=== PATIENT | female | born 1970 | race African-American/Black ===

== ENCOUNTER 2020-11-17 04:28 | Emergency (ER) | payer MEDICARE, MEDICAID ==
[~2020-11-17] VITALS: Ht 172.7 cm; Wt 81.6 kg
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
[2020-11-17] MEDS ORDERED: Morphine Sulfate 4mg/ml Inj (IV USE ONLY) IVP ONE (04:45)
[2020-11-17] MEDS ORDERED: Omnipaque-300 100ml vial INJ ONE (04:45)
[2020-11-17] MEDS ORDERED: Acetaminophen 500mg (ES) tab ORAL ONE (05:00)
[2020-11-17] MEDS ORDERED: Methocarbamol 750mg tab ORAL ONE (05:00)
--- NOTE | 2020-11-17 05:10 | NUR ---
ED Nurse Note: Blood sent for workup
[2020-11-17 05:15] LABS: BASOPHILS % (AUTO) 0.4 % (0.0-2.0); EOSINOPHILS % (AUTO) 0.1 % (0.0-3.0); HEMOGLOBIN 13.4 G/DL (12.0-16.0); LYMPHOCYTES % (AUTO) 13.2 % (20.0-45.0); MEAN CORPUSCULAR VOLUME 79 FL (80-99); MONOCYTES % (AUTO) 3.8 % (1.0-10.0); NEUTROPHILS % (AUTO) 82.6 % (45.0-75.0); PLATELET COUNT 305 K/UL (150-450); RED BLOOD COUNT 4.94 M/UL (4.20-5.40); RED CELL DISTRIBUTION WIDTH 13.6 % (11.6-14.8); WHITE BLOOD COUNT 15.1 K/UL (4.8-10.8)
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
[2020-11-17 05:23] LABS: ANION GAP 9 mmol/L (5-15); BLOOD UREA NITROGEN 14 mg/dL (7-18); CALCIUM 9.6 MG/DL (8.5-10.1); CARBON DIOXIDE 25 MMOL/L (21-32); CHLORIDE 104 MMOL/L (98-107); CREATININE 0.9 MG/DL (0.55-1.30); SODIUM 138 MMOL/L (136-145)
[2020-11-17 05:28] LABS: ALANINE AMINOTRANSFERASE 26 U/L (12-78); ALBUMIN 3.7 G/DL (3.4-5.0); ALKALINE PHOSPHATASE 136 U/L (46-116); ASPARTATE AMINO TRANSFERASE 34 U/L (15-37); BILIRUBIN,TOTAL 0.4 MG/DL (0.2-1.0)
[2020-11-17 05:34] VITALS: BP 140/75
--- NOTE | 2020-11-17 05:36 | Diagnostic Imaging Report ---
EXAM: CT Head Without Intravenous Contrast CLINICAL HISTORY: PAIN TECHNIQUE: Axial computed tomography images of the head/brain without intravenous contrast. CTDI is 53.4 mGy and DLP is 938.7 mGy-cm. One or more of the following dose reduction techniques were used: automated exposure control, adjustment of the mA and/or kV according to patient size, use of iterative reconstruction technique. COMPARISON: No relevant prior studies available. FINDINGS: No acute intracranial hemorrhage. No midline shift or mass effect. The territorial ritter-white matter differentiation is maintained throughout. The ventricles and sulci are commensurate with age. The visualized orbits appear grossly unremarkable. The calvarium is intact. Right temporoparietal scalp soft tissue swelling. The visualized paranasal sinuses and mastoid air cells are grossly clear. IMPRESSION: No acute intracranial hemorrhage, midline shift, or mass effect. Right temporoparietal scalp soft tissue swelling.
--- NOTE | 2020-11-17 05:45 | NUR ---
ED Nurse Note: CT and Xray done Urine sent
--- NOTE | 2020-11-17 05:53 | Diagnostic Imaging Report ---
EXAM: CT Maxillofacial Without Intravenous Contrast CLINICAL HISTORY: PAIN TECHNIQUE: Axial computed tomography images of the face without intravenous contrast. CTDI is 15.3 mGy and DLP is 324.6 mGy-cm. One or more of the following dose reduction techniques were used: automated exposure control, adjustment of the mA and/or kV according to patient size, use of iterative reconstruction technique. COMPARISON: No relevant prior studies available. FINDINGS: The mandible is intact and well located. The maxillary alveolus, hard palate, and pterygoid plates are intact. The paranasal sinuses are well-developed and well-aerated. The mastoid air cells are grossly clear. The nasal bones and maxillary spines are intact. The zygomatic arches and zygomatic bones are intact. The orbital rims and andrew are intact. The intraorbital contents are grossly unremarkable. Mild right periorbital soft tissue swelling. Suspect soft tissue swelling of the left upper lip. IMPRESSION: No facial bone fracture. Mild right periorbital soft tissue swelling. Suspect soft tissue swelling of the left upper lip.
--- NOTE | 2020-11-17 05:57 | Diagnostic Imaging Report ---
EXAM: CT Cervical Spine Without Intravenous Contrast CLINICAL HISTORY: PAIN TECHNIQUE: Axial computed tomography images of the cervical spine without intravenous contrast. CTDI is with 20.2 mGy and DLP is 468.1 mGy-cm. One or more of the following dose reduction techniques were used: automated exposure control, adjustment of the mA and/or kV according to patient size, use of iterative reconstruction technique. COMPARISON: No relevant prior studies available. FINDINGS: The vertebral body heights are maintained. There is no spondylolisthesis. The craniocervical junction is intact. The atlanto-dens interval is maintained. The dens is intact. Straightening of the cervical lordosis. Multilevel degenerative endplate changes, intervertebral disc space narrowing, and facet/uncovertebral arthropathy. There is also posterior spondylitic ridging, which preferentially involves C3-4 which contributes to high-grade right foraminal stenosis and low grade left foraminal stenosis. Diffuse osseous demineralization. The unenhanced neck soft tissues are grossly unremarkable. The visualized lung apices are grossly clear. IMPRESSION: No cervical spine fracture.
[2020-11-17 05:59] LABS: APPEARANCE,URINE CLEAR; BILIRUBIN, URINE NEGATIVE (NEGATIVE); COLOR,URINE PALE YELLOW; GLUCOSE, URINE (UA) NEGATIVE (NEGATIVE); KETONES,URINE NEGATIVE (NEGATIVE); LEUKOCYTE ESTERASE ,URINE NEGATIVE (NEGATIVE); NITRITE,URINE NEGATIVE (NEGATIVE); PH,URINE 5 (4.5-8.0); PROTEIN,URINE 1+ (NEGATIVE); UROBILINOGEN,URINE NORMAL MG/DL (0.0-1.0)
[2020-11-17] MEDS: Bacitracin Oint 15gm Tube TOPIC SCH ×2 (06:26→10:57)
--- NOTE | 2020-11-17 06:36 | NUR ---
ED Nurse Note: Wound care done
--- NOTE | 2020-11-17 07:14 | Diagnostic Imaging Report ---
EXAM: XR Right Wrist Complete, 3 or More Views CLINICAL HISTORY: PAIN TECHNIQUE: Frontal, lateral and oblique views of the right wrist. COMPARISON: No relevant prior studies available. FINDINGS: Bones/joints: Unremarkable. No acute fracture. No dislocation. Soft tissues: Unremarkable. No radiopaque foreign body. IMPRESSION: No acute fracture.
--- NOTE | 2020-11-17 07:15 | Diagnostic Imaging Report ---
EXAM: XR Left Hand Complete, 3 or More Views CLINICAL HISTORY: PAIN TECHNIQUE: Frontal, lateral and oblique views of the left hand. COMPARISON: No relevant prior studies available. FINDINGS: Bones/joints: Unremarkable. No acute fracture. No dislocation. Soft tissues: Unremarkable. No radiopaque foreign body. IMPRESSION: No acute fracture.
--- NOTE | 2020-11-17 07:15 | Diagnostic Imaging Report ---
EXAM: XR Right Hand Complete, 3 or More Views CLINICAL HISTORY: PAIN TECHNIQUE: Frontal, lateral and oblique views of the right hand. COMPARISON: No relevant prior studies available. FINDINGS: Bones/joints: Unremarkable. No acute fracture. No dislocation. Soft tissues: Unremarkable. No radiopaque foreign body. IMPRESSION: No acute fracture.
--- NOTE | 2020-11-17 07:17 | Diagnostic Imaging Report ---
EXAM: XR Right Shoulder Complete, 2 or More Views CLINICAL HISTORY: PAIN TECHNIQUE: Two or more views of the right shoulder. COMPARISON: No relevant prior studies available. FINDINGS: Bones/joints: Unremarkable. No acute fracture. No dislocation. Soft tissues: Unremarkable. IMPRESSION: No fracture.
--- NOTE | 2020-11-17 08:12 | NUR ---
ED Nurse Note: Collected blood alcohol and typing/screening then sent to lab.
--- NOTE | 2020-11-17 08:43 | Diagnostic Imaging Report ---
ADDENDUM - Added by Yonis Garber MD on 11/17/2020 9:19 AM (-05:00) The report and impression should state: FINDINGS: Pleural space: Small LEFT apical pneumothorax. No significant effusion. IMPRESSION: Small LEFT apical pneumothorax. EXAM: CT Chest With Intravenous Contrast CLINICAL HISTORY: PAIN TECHNIQUE: Axial computed tomography images of the chest with intravenous contrast. CTDI is 11.2 mGy and DLP is 458.6 mGy-cm. One or more of the following dose reduction techniques were used: automated exposure control, adjustment of the mA and/or kV according to patient size, use of iterative reconstruction technique. COMPARISON: No relevant prior studies available. FINDINGS: Lungs: Dependent atelectasis. No pulmonary contusion. Pleural space: Small right apical pneumothorax. No significant effusion. Heart: Unremarkable. No cardiomegaly. No significant pericardial effusion. Bones/joints: Nondisplaced fracture of the left anterior 4th, 6th, and 7th ribs. Note, there is a history of left shoulder pain and the left shoulder is only partially included in the field of view. No left scapular fracture. No dislocation. Soft tissues: Unremarkable. Vasculature: Unremarkable. No thoracic aortic aneurysm. Lymph nodes: Unremarkable. No enlarged lymph nodes. IMPRESSION: Small right apical pneumothorax. Nondisplaced fracture of the left anterior 4th, 6th, and 7th ribs. Note, there is a history of left shoulder pain and the left shoulder is only partially included in the field of view. No left scapular fracture. EXAM: CT Abdomen and Pelvis With Intravenous Contrast CLINICAL HISTORY: PAIN TECHNIQUE: Axial computed tomography images of the abdomen and pelvis with intravenous contrast. CTDI is 11.2 mGy and DLP is 458.6 mGy-cm. One or more of the following dose reduction techniques were used: automated exposure control, adjustment of the mA and/or kV according to patient size, use of iterative reconstruction technique. COMPARISON: No relevant prior studies available. FINDINGS: Lung bases: Unremarkable. No mass. No consolidation. ABDOMEN: Liver: Unremarkable. No mass. Gallbladder and bile ducts: Unremarkable. No calcified stones. No ductal dilation. Pancreas: Unremarkable. No mass. No ductal dilation. Spleen: Unremarkable. No splenomegaly. Adrenals: Unremarkable. No mass. Kidneys and ureters: Mild fullness of the bilateral renal collecting systems. No hydronephrosis. No delayed nephrogram. Simple left upper pole renal cyst. Stomach and bowel: Unremarkable. No obstruction. No mucosal thickening. PELVIS: Appendix: No findings to suggest acute appendicitis. Bladder: Small focus of air within the urinary bladder, correlate for recent Perea catheter. Reproductive: Unremarkable as visualized. ABDOMEN and PELVIS: Intraperitoneal space: Unremarkable. No free air. No significant fluid collection. Bones/joints: No acute fracture. No dislocation. Soft tissues: Subcutaneous induration along the left iliac rim, consistent with soft tissue contusion. No organized hematoma. Subcutaneous induration along the right lateral abdominal wall, at the level of the right 12th rib, consistent with soft tissue contusion. No organized hematoma. Vasculature: Unremarkable. No abdominal aortic aneurysm. Lymph nodes: Unremarkable. No enlarged lymph nodes. IMPRESSION: No traumatic visceral or skeletal injury. No hemoperitoneum. No acute fractures. Subcutaneous induration along the left iliac rim, consistent with soft tissue contusion. No organized hematoma. Subcutaneous induration along the right lateral abdominal wall, at the level of the right 12th rib, consistent with soft tissue contusion. No organized hematoma. <MYCVCSECTION> Communications: 11/17/20 09:29 Verify Receipt Verified receipt with Dr. Wooten on 11/17 09:29 (-08:00)
[2020-11-17 09:27] VITALS: BP 134/77
--- NOTE | 2020-11-17 09:27 | NUR ---
ED Nurse Note: Patient is speaking over the phone without distress and speaks in full sentences. Patient is aware that she will get transferred to another hospital.
--- NOTE | 2020-11-17 10:54 | NUR ---
ED Nurse Note: Report given to Lynette FLORES of [facility].
--- NOTE | 2020-11-17 11:00 | NUR ---
HAND-OFF: Report given to Farida FLORES.
[2020-11-17 12:30] VITALS: BP 131/76
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
== END 2020-11-17 12:30 | disposition home or self-care (01) ==
LOC: EDBD 04:28 → EMR 05:02
DX: S00.81XA Abrasion of other part of head, initial encounter (principal); S00.211A Abrasion of right eyelid and periocular area, initial encounter; S40.211A Abrasion of right shoulder, initial encounter; S60.512A Abrasion of left hand, initial encounter; S60.511A Abrasion of right hand, initial encounter; S22.42XA Multiple fractures of ribs, left side, initial encounter for closed fracture; V44.5XXA Car driver injured in collision with heavy transport vehicle or bus in traffic accident, initial encounter; Y92.410 Unspecified street and highway as the place of occurrence of the external cause; S90.819A Abrasion, unspecified foot, initial encounter; R22.0 Localized swelling, mass and lump, head; Z20.828 Contact with and (suspected) exposure to other viral communicable diseases; Z88.0 Allergy status to penicillin
CPT/HCPCS: 36415; 70450; 70486; 71260; 72125; 73030; 73110; 73130; 74177; 80053; 80307; 81001; 83690; 84702; 85025; 85610; 85730; 86850; 86900; 86901; 96361; 96374; 96375; 99284; G0480; J2405; J7030; Q9965; U0002